=== PATIENT | male | born 1980 ===

== ENCOUNTER 2025-02-11 12:37 | Emergency (ER) | payer OTHER, SELFPAY ==
--- NOTE | 2025-02-11 12:52 | ED_ITS ---
HPI - Psych General Chief Complaint: ETOH/Substance Use Stated Complaint: Mental Health Time Seen by Provider: 02/11/25 13:22 Source: patient and family ( at bedside) Mode of arrival: ambulatory Limitations: no limitations History of Present Illness ED Provider: SUSAN Nguyen HPI Narrative: 44-year-old male accompanied by his without significant medical history presents to the ED for help with substance use. Patient states he has an extensive history of cocaine and alcohol use since his teenage years. Patient states he currently snorts and smokes approximately 5.5 grams of cocaine daily and drinks a 750ml bottle of hard liquor and 5-6 IPA beers daily. He is interested in help with these substances as he has a baby on the way and is ready to stop using. He has no physical complaints today. Denies SI, HI, AH, VH Related Data Allergies Allergy/AdvReac Type Severity Reaction Status Date / Time ibuprofen (From Motrin) Allergy Hives Verified 02/11/25 12:57 Review of Systems 2 Review of Systems: CONST: Negative for fever, body aches and chills. HENT: Negative for neck pain/stiffness, headache, congestion, sore throat, swelling. EYES: Negative for discharge/pain or vision changes. RESP: Negative for cough/hemoptysis and shortness of breath. CV: Negative chest pain, difficulty breathing, palpitations. ABD: Negative pain, nausea, vomiting. : Negative increase frequency, dysuria, blood in urine or stool. MUSC: Negative for muscle aches, edema. SKIN: Negative rash, lesions/sores. NEURO: Negative headache, dizziness, weakness. Yes all other systems are reviewed and are negative PMFSH Past Medical History Attestation statement: The following information was validated with the patient. Source: old records reviewed and nursing notes reviewed Social History Social History Alcohol intake: current Alcohol intake frequency: 0-2 drinks per day Smoked in Last 30 Days: No Use of substances other than those prescribed or required for medical reasons: Yes Advance Directives: No Advance Directives Information Provided: Yes Physical Exam 2 Vital Signs: Vital Signs: Last Vital Signs Temp 0 F L 02/11/25 17:01 Pulse 112 H 02/11/25 17:01 Resp 18 02/11/25 17:01 BP 141/106 H 02/11/25 17:01 Pulse Ox 98 02/11/25 17:01 O2 Del Method Room Air 02/11/25 17:01 BMI result Body Mass Index 32.3 GENERAL APPEARANCE: ?AxOx4, generally well-appearing, no acute distress. HEENT: ?NC, AT. MMM. EOMI, clear conjunctiva, oropharynx clear. NECK: ?Supple without lymphadenopathy.? No stiffness or restricted ROM. HEART:? tachycardic rate and regular rhythm, normal S1/S2, no m/r/g LUNGS:? CTAB, moving air well. No crackles or wheezes are heard. ABDOMEN: ?Soft, nontender, nondistended BACK: No CVAT, no obvious deformity. EXTREMITIES: ?Without cyanosis, clubbing or edema. NEUROLOGICAL: ?Grossly nonfocal. Alert and oriented, moving all 4 extremities. Observed to ambulate with normal gait. Skin: ?Warm and dry without any rash. Course Course Course Narrative: Pilar Raygoza EMBROIDERY CUTTER 02/11 1252 This is a rapid medical exam. Deferred additional HPI, ROS, PE to primary provider. 44 yo male with PMH of ADHD here with complaints of seeking detox, also palpitations used cocaine just WAITER/WAITRESS THIRD CLASS. Uses cocaine, alcohol daily. No SI/HI Ordered labs, EKG, AGUSTIN tachycardic in triage Medications Administered Discontinued Medications Generic Name Dose Route Start Last Admin Trade Name Freq PRN Reason Stop Dose Admin Naloxone HCl 8 mg 02/11/25 16:51 02/11/25 16:57 Naloxone Hcl Nasal Take Home 4 Mg [place] NOSTRILALT 02/11/25 16:52 8 mg ONCE ONE Administration Medical Decision Making Medical Decision Making MDM Narrative: 44-year-old male accompanied by his without significant medical history presents to the ED for help with substance use. Patient states he has an extensive history of cocaine and alcohol use since his teenage years. Patient states he currently snorts and smokes approximately 5.5 grams of cocaine daily and drinks a 750ml bottle of hard liquor and 5-6 IPA beers daily. He is interested in help with these substances as he has a baby on the way and is ready to stop using. He has no physical complaints today. Labs without leukocytosis, no evidence of anemia H and H stable, no electrolyte abnormality. Toxicology positive for amphetamines, cocaine. ETOH level of 56. Patient was hypertensive in the department today. He used cocaine prior to arrival. Patient reports he has hypertension but does not take medication for it as he does not believe in taking medication. Patient states he is anxious to leave and smoke a cigarette and contributes his elevated pressure to this as well. Patient had CARE team consult and is not interested in inpatient detox at this time. CARE team provided resources in the community for aid in cessation of alcohol and cocaine use. Patient and his are satisfied with the resources given to them today. No symptoms of alcohol withdrawal today. Patient feels motivated and feels well enough to go home for self care and self follow up with resources provided. I counseled patient on strict return precautions as he does not have a primary care provider to follow up with including symptoms of alcohol withdrawal, and risk of continued use of cocaine with hypertension and risk of aortic dissection. Patient sent with take home narcan. Patient and his are in agreement with the plan. Differential Diagnosis Differential Diagnoses: The differential diagnosis associated with the presentation includes Cocaine intoxication Alcohol intoxication Alcohol withdrawal encounter for resources to quit drinking alcohol Admission/Observation Consideration of admission/observation: Escalation of care including admission/observation considered Lab Data [facility] Lab Attestation statement: I reviewed the patient's lab results. 02/11/25 13:07 02/11/25 13:07 Labs: Lab Results 02/11/25 02/11/25 Range/Units 13:07 14:44 WBC 10.8 (4.8-10.8) X10*3/uL RBC 4.91 (4.60-5.80) X10*6/uL Hgb 14.7 (14.0-18.0) g/dl Hct 43.1 (42.0-52.0) % MCV 87.8 (80.0-98.0) fL MCH 29.9 (27.0-33.0) pg MCHC 34.1 (31.0-36.0) g/dl RDW 13.6 (11.0-16.0) % Plt Count 321 (160-400) X10*3/uL MPV 8.9 L (9.4-12.4) fL Immature Gran % (Auto) 0.2 (0.0-0.4) % Neut % (Auto) 55.7 (45-73) % Lymph % (Auto) 33.8 (20-40) % Hunt % (Auto) 7.4 (2-11) % Eos % (Auto) 2.3 (0-4) % Baso % (Auto) 0.6 (0-2) % Lymph # (Auto) 3.6 (1.2-4.9) X10*3/uL Hunt # (Auto) 0.8 (0.1-1.2) X10*3/uL Eos # (Auto) 0.3 (0.0-0.4) X10*3/uL Baso # (Auto) 0.1 (0.0-0.2) X10*3/uL Abs Immat Gran (auto) 0.02 (0.00-0.03) X10*3/uL Absolute Neuts (auto) 6.0 (2.0-8.3) x10*3/uL Absolute Nucleated RBC 0.000 (0.0-0.012) X10*3/uL Nucleated RBC % (auto) 0.0 (0.0-0.2) /100WBC Sodium 142 (135-145) mmol/L Potassium 4.1 (3.3-5.1) mmol/L Chloride 109 H (96-108) mmol/L Carbon Dioxide 24 (22-29) mmol/L Anion Gap 13 (12-20) BUN 11 (9-16) mg/dL Creatinine 1.12 (0.5-1.4) mg/dL Estim Creat Clear Calc 106.7 Estimated GFR > 60 Random Glucose 98 (60-115) mg/dL Calcium 9.2 (8.4-10.2) mg/dL Total Bilirubin 0.2 (0.0-1.0) mg/dL Direct Bilirubin < 0.2 (0.0-0.5) mg/dL AST 30 (5-37) U/L ALT 24 (0-40) U/L Alkaline Phosphatase 82 (39-117) U/L Total Protein 7.5 (6.5-8.0) g/dL Albumin 4.5 (3.5-5.0) g/dL Urine Opiates Screen Not Detected (Not Detect) Ur Buprenorphine Scrn Not Detected (Not Detect) ng/mL Ur Oxycodone Screen Not Detected (Not Detect) ng/mL Urine Methadone Screen Not Detected (Not Detect) ng/mL Urine Fentanyl Screen Not Detected (Not Detect) Ur Barbiturates Screen Not Detected (Not Detect) Ur Phencyclidine Scrn Not Detected (Not Detect) Ur Amphetamines Screen POSITIVE H (Not Detect) U Benzodiazepines Scrn Not Detected (Not Detect) Urine Cocaine Screen POSITIVE H (Not Detect) U Marijuana (THC) Screen Not Detected (Not Detect) Ethyl Alcohol 56 mg/dL Independent Interpretation I performed an independent interpretation of an: EKG Interpretation: I personally interpreted the EKG which reveals sinus tachycardia, no significant ST-elevation/depression, T-wave abnormality Vent. Rate : 120 BPM Atrial Rate : 120 BPM P-R Int : 152 ms QRS Dur : 82 ms QT Int : 324 ms P-R-T Axes : 62 2 25 degrees QTcB Int : 457 ms Sinus tachycardia Otherwise normal ECG No previous ECGs available Independent Historian Clinical information obtained from an independent historian. History obtained from or confirmed by: Spouse ( at bedside corroborating history) External Record Review External record reviewed: Inpatient record, Office record and Outpatient record Chronic Conditions Patient?s care impacted by: Hypertension and Other (Alcohol use disorder, cocaine use disorder) Social Determinants Patient?s care significantly limited by Social Determinants of Health including: Other Social Determinant of Health Discharge Plan Discharge Clinical Impression: Alcohol use disorder, Cocaine use disorder Patient Disposition: Home, Self-Care Instructions: Cocaine Use Disorder (ED), Alcohol Use Disorder (ED) Additional Instructions: You were evaluated in the ED today as you were seeking resources to help you with your alcohol and cocaine consumption. Your labs today were normal. Your EKG revealed an increased tachycardic heart rate, without emergent findings. You were hypertensive in the department today however this is most likely due to diagnosis of hypertension that you do not take medication for, cocaine use, and anxiety from being in the department. You had a consult with our care team today which provided you with outpatient community resources to aid in your cessation of alcohol and cocaine use. You were given Narcan take home as the cocaine in his area usually has fentanyl in it and you are at risk for opioid overdose. Your alcohol and cocaine use with hypertension that you do not take medication for puts you at extreme risk of aortic dissection, heart attack, brain aneurysm. Please follow up with a primary care doctor to manage your high blood pressure. Alcohol use disorder You were seen in the Emergency Department today for treatment of alcohol use disorder.? If you would like to cut down or stop your alcohol use please consider calling our outpatient Addiction Treatment office:? [facility] (M-F [id number]) [address] You have also been given a list of treatment providers in the area that can assist as well.? If you experience seizures, vomiting blood, black stools, falls, severe headache, chest pain, fevers, trouble breathing, hallucinations or any other concerns you need to call 911 or seek immediate care. Please stay hydrated. Please return to the emergency department if you experience chest pain, chest pain that radiates to the back, headaches, confusion, altered mental status, palpitations, nausea, vomiting, fevers over 100.4?, inpatient needs for alcohol detox, suicidal ideation, or any new/worsening/concerning symptoms Interventions: ED Discharge Assessment Last Done: 02/11/25 17:01 Discharge Date/Time: 02/11/25 17:02 Print Language: Ghanaian
[2025-02-11 12:53] VITALS: BP 182/101; PULSE 126; RESP 18; TEMP 36.7; O2SAT 98; BMI 32.3
--- NOTE | 2025-02-11 12:55 | ECG_ITS ---
Test Reason : palpitations Blood Pressure : */* mmHG Vent. Rate : 120 BPM Atrial Rate : 120 BPM P-R Int : 152 ms QRS Dur : 82 ms QT Int : 324 ms P-R-T Axes : 62 2 25 degrees QTcB Int : 457 ms Sinus tachycardia Otherwise normal ECG No previous ECGs available Referred By: Pilar Raygoza Electronically Signed By: PREMA JUAREZ MD
[2025-02-11 13:12] LABS: MANUAL DIFF FLAG NO
[2025-02-11 13:13] LABS: Hematocrit 43.1 % (42.0-52.0); Hemoglobin 14.7 g/dl (14.0-18.0); Imm Gran Abs Auto 0.02 X10*3/uL (0.00-0.03); Imm Gran Pct Auto 0.2 % (0.0-0.4); Lymphocytes Absolute Auto 3.6 X10*3/uL (1.2-4.9); Mean Corpuscular HGB Conc 34.1 g/dl (31.0-36.0); Mean Corpuscular Hemoglobin 29.9 pg (27.0-33.0); Mean Corpuscular Volume 87.8 fL (80.0-98.0); NRBC Abs Auto 0.000 X10*3/uL (0.0-0.012); NRBC Pct Auto 0.0 /100WBC (0.0-0.2); Platelet Count 321 X10*3/uL (160-400); Red Blood Count 4.91 X10*6/uL (4.60-5.80); White Blood Count 10.8 X10*3/uL (4.8-10.8)
[2025-02-11 13:34] LABS: Alanine Aminotransferase 24 U/L (0-40); Albumin Level 4.5 g/dL (3.5-5.0); Alkaline Phosphatase 82 U/L (39-117); Anion Gap 13 (12-20); Aspartate Amino Transferase 30 U/L (5-37); Blood Urea Nitrogen 11 mg/dL (9-16); Calcium 9.2 mg/dL (8.4-10.2); Carbon Dioxide 24 mmol/L (22-29); Chloride 109 mmol/L (96-108); Creatinine Clr Calc Pharmacy 106.7; Estimated Glomerular Filt Rate > 60; Potassium 4.1 mmol/L (3.3-5.1); Sodium 142 mmol/L (135-145); Total Protein 7.5 g/dL (6.5-8.0)
[2025-02-11 14:38] VITALS: BP 156/101; PULSE 109; RESP 18; O2SAT 99
--- NOTE | 2025-02-11 14:40 | PC.NURSE ---
44 M here for cocaine and alcohol detox, last use this morning. A+OX4, calm, cooperative. Pt sts denies CP or SOB. RR even and unlabored. Pt sts anxiety, adhd. Pt sts on adhd meds and abx for dog bites on bilat arms, sites look like they are healing. Pt sts last use of cocaine prior to arrival.
--- OUTSIDE RECORDS SUMMARY | 2025-02-11 15:29 | XMS_ITS | Data Portability ---
Author Organization [place] - [facility], [facility] Address [address] [place] [address] Care Team Providers Care Robotics Technician Name Role Phone CASANDRA KHAN Sales And Merchandising Representative [phone] Assessment No assessment recorded. Plan of Treatment Reminders Order Date Submit Date Provider Last Modified By Organization Details Last Modified Time Details Appointments None recorde d. Lab None recorde d. Referral None recorde d. Procedures None recorde d. Surgeries None recorde d. Imaging XR, finger( s), 2 or more view - 3v rtr small finger, infertility nurse, [phone] [email or web address] Not available 10:33:03 Medication Orders None recorde d. Patient TargetsNo targets recorded. Patient Instructions Encounter Date Encounter Id Patient Instructions Last Modified By Organization Details Last Modified Time 09/02/2023 [id number] application of splint, finger* - rt small finger aluminum foam splint dorsal to cover dip in neutral [email or web address] Not available 09/02/2023 10:51:10 Reason for Referral None Reported. Results Created Date Observation Date Name Description Value Unit Range Abnormal Flag Note LastModifiedBy Organization Detail LastModifiedTime 12/19/19 24 08/09/2021 imagi ng/di agnos tic resul t No observ ation record ed. [email or web address] Not Available 11/21 08:23:38 Result Notes None recorded. Medical Equipment None Reported. Allergies Allergen ID Allergen Name Allergen Category Reaction Reaction Severity Criticality Documentation Date Start Date Code Code System Note Provider Name and Address Organization Details Recorded Time 55624 ibuprofen medicatio n Not available Not available Not available 06/23/20232021 5640 RxNorm Not Available [facility] 12:19:36 Medications Name Sig Start Date Stop Date Status Note LastModified by Organization Details LastModified Time nicotine 14 mg/24 hr daily transdermal patch APPLY 1 PATCH TOPICALLY DAILY FOR 14 DAYS FOLLOWING COMPLETIO N OF STEP 1 active Not Available Not Available No t Available clindamycin HCl 300 mg capsule TAKE 1 CAPSULE BY MOUTH 3 TIMES A DAY FOR 7 DAYS active Not Available Not Available No t Available dextroamphe tamine-amph etamine 10 mg tablet TAKE 1 TABLET BY MOUTH TWICE A DAY FOR 30 DAYS active Not Available Not Available No t Available dextroamphe tamine-amph etamine 20 mg tablet TAKE 1 TABLET BY MOUTH 2 TIMES A DAY,INSTR :PT DUE 08-02-23 active Not Available Not Available No t Available nicotine 21 mg/24 hr daily transdermal patch APPLY TOPICALLY EVERY DAY FOR 6 WEEKS active Not Available Not Available No t Available nicotine 7 mg/[address] patch [address] 1 PATCH TOPICALLY DAILY,X14 DAYS,FOLL OWING COMPLETIO N OF STEP 2 active Not Available Not Available No t Available rosuvastati n 5 mg tablet TAKE 1 TABLET BY MOUTH EVERY DAY active Not Available Not Available No t Available oxycodone HCl-oxycodo ne-ASA take 1 every 4 - 6 hours as needed for pain.DO NOT DRIVE WHILE TAKING THIS MEDICATIO N 01/18 completed Statu s: 'Disc ontin ued'; Not Available Not Available Not Available Vitals Date Recorded Body height Body mass index (BMI) Body weight Provider Name and Address Organization Details Last Updated DateTime 09/02/2023 180.34 cm 32.1 kg/m2 847682.25 g ELGIN AWAN [place] - [facility] 09/02/2023 09:38:57 Social History None recorded. Functional Status None recorded. Mental Status None recorded. Family History Nothing Reported. Medical History No medical history recorded. Past Encounters Encounter ID Performer Location Encounter Start Date Encounter Closed Date Diagnosis/Indication Diagnosis SNOMED-CT Code Diagnosis ICD10 Code Diagnosis IMO Codes Diagnosis Note [id number] MD Yong Carr[place] [address] [place] [address] 09/02/2023 09:00:35 09/12/2023 10:33:03 Pain in finger of right hand 8170344251 47813 M79.644 Mallet fin allyson of right hand [id number] 49608 M20.011 Health Concerns Section Related Observation LastModified by Organization Detai ls LastModified Time None Recorded Concern Status LastModified by Organization Details LastModified Time None Recorded Advance Directives Directive None Recorded Payers Insurance Date Sequence Insurance Name Policy Number Policy Palencia Covered Member ID Palencia Member ID Guarantor Name 09/01/2023 [facility] Brody Santiago Notes Date Note Type Note Provider Name and Address Organization Details Recorded Time 09/02/2023 text/html ROS as noted in the HPI Diagnosis: 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 He was cleaning out a freezer work when a 16 pound turkey fell striking the tip of his right small finger. He noted the immediate onset of pain and swelling. He has been unable to fully straighten the digit since that time. He has subsequently been placed in a splint maintaining the distal joint of his right small finger in extension.Past family, medical, social history and review of systems has been reviewed, updated and signed by me and is located in the patient s chart.Examination: Healthy appearing patient in no apparent distress. Alert and oriented. Well fitting splint right small finger which maintains his DIP joint extension but is blocking his PIP joint from full flexion. Provocative testing of the remaining digital joints reveals no instability. No atrophy either upper extremity. Brisk cap refill of digits.X-rays ordered, obtained, and reviewed today at [facility] and lateral/oblique right small finger reveal no evidence of fracture or dislocation.Plan: I described to the patient the nature of mallet injuries and his treatment options. I provided him with a new splints maintaining his DIP joint extension with his PIP free. I have encouraged him to work aggressively on mobilizing his PIP joint. He will follow up 8 weeks from his initial splinting today. We will remove the splint and evaluate him clinically at that time. No no x-rays should be necessary. Larry Laws MD [address] [place], [place] [address] [address], [place], [address], [facility] - [facility] 09/02/2023 12:20:36
--- OUTSIDE RECORDS SUMMARY | 2025-02-11 15:29 | XMS_ITS | Clinical Summary ---
Author Organization [facility] Address [address] [place] [address] Care Team Providers Care Packaging Design Engineer Name Role Phone Pcp, No Primary Care Provider Unavailabl e Encounters Date Type Department Care Team Description 12/03/2024 6:50 PM EDT Office Visit [facility] [address] [place] [address] Wally Couch MD Dow, Emily Christina, APRN Testicular abnormality (Primary Dx); Acute epididymitis; Need for prophylactic antibiotic 12/03/2024 Travel from Last 3 Months Social History Tobacco Use Types Packs/Day Years Used Date Smoking Tobacco: Never Assessed Sex and Gender Information Value Date Recorded Sex Assigned at Not on file Legal Sex Male 5:05 PM EDT Gender Identity Not on file Sexual Orientation Not on file Last Filed Vital Signs Vital Sign Reading Time Taken Comments Blood Pressure 129/69 12/03/2024 7:13 PM EDT Pulse 113 12/03/2024 7:13 PM EDT Temperature 36.9 C (98.5 F) 12/03/2024 7:13 PM EDT Respiratory Rate - - Oxygen Saturation 97% 12/03/2024 7:13 PM EDT Inhaled Oxygen Concentration - - Weight 105 kg (232 lb) 12/03/2024 7:13 PM EDT Height 181.6 cm (5' 11.5 ) 12/03/2024 7:13 PM ED T Body Mass Index 31.91 12/03/2024 7:13 PM EDT Plan of Treatment Health Maintenance Due Date Last Done Comments Hepatitis C Virus Screening 1982 HIV Screening 1995 DTaP/Tdap/Td Vaccines (1 - Tdap) 2001 Hepatitis B Vaccines (1 of 3 - 19+ 3-dose series) 2001 Influenza Vaccine 11/19/2024 COVID-19 Vaccine (2023-2 5 season) 2024 HPV Vaccines (No Doses Required) Completed Pneumococcal Vaccine: Pediat nicky (0-5 Years) and At-Risk Patients (6 to 49 Years) Aged Out No longer eligible b ased on patient's age to complete this topic Procedures Procedure Name Priority Date/Time Associated Diagnosis Comments GC/CHLAMYDIA, RNA TMA Routine 12/04/2024 2:30 PM EDT from Last 3 Months Results * GC/Chlamydia, RNA TMA (12/04/2024 2:30 PM EDT) Chlamydia Trachomatis RNA, TMA NOT DETECTED NOT DETECTED [facility] Neisseria Gonorrhoeae RNA, TMA NOT DETECTED NOT DETECTED [facility] Chlamydia Trachomatis RNA, TMA Comment [facility] Comment: The analytical performance characteristics of this assay, when used to test SurePath(TM) specimens have been determined by [employer]. The modifications have not been cleared or approved by the FDA. This assay has been validated pursuant to the CLIA regulations and is used for clinical purposes. For additional information, please refer to https://education.[employer].InnaVirVax/faq/DJC175 (This link is being provided for information/ educational purposes only.) 12/04/2024 2:30 PM EDT 12/04/2024 11:29 PM EDT us Jessenia Kulkarni APRN LAB AMB MICRO ORDERABLE S Final Result [facility] [address] [place] [phone] from Last 3 Months Care Teams Packaging Design Engineer Relationship Specialty Start Date End Date Pcp, No PCP - General General Medicine 12/03/24
--- OUTSIDE RECORDS SUMMARY | 2025-02-11 15:30 | XMS_ITS | Clinical Summary ---
Author Organization [facility] Address [address] [place] [address] [place] [id number] Phone Care Team Providers Care Industrial Security Analyst Name Role Phone Unavailable Primary Care Provider Unavailabl e Allergies Active Allergy Reactions Criticality Noted Date Comments Ibuprofen Hives 11/29/2015 Medications traMADoL (ULTRAM) 50 mg tablet 08/22/2020 Active amoxicillin (AMOXIL) 875 MG tablet 08/22/2020 Active Active Problems Problem Noted Date Diagnosed Date Varicocele 07/12/2020 Overview (07/12/2020): left Pain in both wrists 07/12/2020 Assessment & Plan (07/12/2020 2:28 PM EDT): Referral to Dr. Herbert ; he has a left wrist ganglion - reviewed these can be aspirated with ~50% chance of recurrence FHx: colon cancer 07/12/2020 Assessment & Plan (07/12/2020 2:26 PM EDT): High grade polyps in 3 first degree relatives, states family was advised to start screening at age 36; referral to [facility] is made. BMI 40.0-44.9, adult 07/12/2020 Assessment & Plan (07/12/2020 2:26 PM EDT): Focus on gradual dietary change and regular exercise. Tobacco use 07/12/2020 Assessment & Plan (07/12/2020 2:27 PM EDT): 13 pack year history, 1/2 ppd ; sent in [facility] and reviewed use; referral to smoking cessation group made Immunizations Immunization Administration Dates Next Due PPD Test 07/18/2017 Tdap 07/12/2020 Family History Medical History Relation Comments Colon polyps Father Colon cancer Paternal Uncle Colon polyps Sister Relation Status Comments Father Paternal Uncle Sister Social History Tobacco Use Types Packs/Day Years Used Date Smoking Tobacco: Every Day Cigarettes 0.5 15 Smokeless Tobacco: Former Alcohol Use Standard Drinks/Week Comments Yes 0 (1 standard drink = 0.6 oz pur e alcohol) 2-3 days a week, 3 drinks Child or Family Care Answer Date Record ed Do you have problems with on e of the following making it difficult for you to work, study, or receive health care? No 07/12/2020 Education Answer Date Recorded Are you interested in more education? Not on aristides e 08/16/2022 Are you concerned about learning? Not on file 08/16/2022 No 08/16/2022 No 08/16/2022 Food Answer Date Recorded Within the past 6 months we worried whether our food would run out before we got money to buy more. Never True 07/12/2020 Within the past 6 months the food we bought just didn't last and we didn't have enough money to get more. Never True Paying for Meds Answer Date Recorded Do you have trouble paying for medicines? No 07/12/2020 Paying Utility Bills Answer Date Record ed Do you have trouble paying your heating or elect ricity bill? No 07/12/2020 Transportation Answer Date Recorded Has the lack of transportati on kept you from medical appointments or from getting medications? No 07/12/2020 Digital Access Answer Date Recorded No 09/13/2022 No 09/13/2022 No 09/13/2022 Reliable internet access at home? Not on file 09/13/2022 Device with a working camera? Not on file Sex and Gender Information Value Date Recorded Sex Assigned at Not on file Legal Sex Male 9:19 PM EDT Gender Identity Not on file Sexual Orientation Not on file Last Filed Vital Signs Vital Sign Reading Time Taken Comments Blood Pressure 138/82 07/12/2020 1:29 PM EDT Pulse 95 07/12/2020 1:29 PM EDT Temperature 36.7 C (98.1 F) 07/12/2020 1:29 PM EDT Respiratory Rate - - Oxygen Saturation 97% 07/12/2020 1:29 PM EDT Inhaled Oxygen Concentration - - Weight 113.8 kg (250 lb 12.8 oz) 07/12/2020 1:29 PM EDT Height 167.6 cm (5' 6 ) 07/12/2020 1:29 PM EDT Body Mass Index 40.48 07/12/2020 1:29 PM EDT Plan of Treatment Health Maintenance Due Date Last Done Comments SMOKING Hx and SMOKELESS TOBACCO SCREENING 1995 PNEUMOCOCCAL VACCINES (0-49 years) (1 of 2 - PCV) 2001 DEPRESSION SCREENING 07/12/2021 07/12/2020 INFLUENZA VACCINE (#1) 2024 COVID-19 VACCINE (3 - 2024-2 6 season) 2024 01/18/2021, 12/28/2020 LIPID PANEL 07/24/2025 07/24/2020 Adult Td,Tdap Booster 07/12/2030 07/12/2020 HEPATITIS C SCREENING Completed 07/24/2020 HIV ONE-TIME SCREENING (18-6 5 YEARS) Completed 07/24/2020 HEPATITIS A VACCINES Aged Out No long er eligible based on patient's age to complete this topic HIB VACCINES Aged Out No longer eligi ble based on patient's age to complete this topic MENINGOCOCCAL VACCINES (ACWY) Aged Out No longer eligible based on patient's age to complete this topic MENINGOCOCCAL VACCINES (B) Aged Out N o longer eligible based on patient's age to complete this topic Medical Devices Not on file Procedures Procedure Name Priority Date/Time Associated Diagnosis Comments LIPID PANEL Routine 07/24/2020 9:38 AM EDT Screening, lipid HEPATITIS C ANTIBODY, QUALITATIVE Routine 07/24/2020 9:38 AM EDT Encounter for hepatitis C screening test for low risk patient from Last 3 Months or Most Recently Relevant to Health Maintenance Results * Hepatitis C antibody, qualitative (07/24/2020 9:38 AM EDT) HCV NON-REACTIV E NON-REACTI VE [facility] Blood 07/24/2020 9:38 AM EDT 07/24/2020 9:47 AM EDT us [facility] LAB BLOOD ORDERABLES Final Re sult Performing Organization Address [facility]/ZIP Co de Phone Number [address] [phone] * (ABNORMAL) Lipid panel (07/24/2020 9:38 AM EDT) HDL 58 mg/dL [facility] Comment: Interpretation <40 mg/dL: Low HDL cholesterol (major risk factor for CHD) Greater than or equal to 60 mg/dL: High HDL cholesterol ( negative risk factor for CHD) HDL - cholesterol is affected by a number of factors, e.g. smoking, excerise, hormones, sex and age. CHOLESTEROL 264(H) 0 - 240 mg/dL [facility] TRIGLYCERIDES 107 30 - 160 mg/dL [facility] LDL 185(H) 50 - 129 mg/dL [facility] Comment: LDL levels in terms of risk for coronary heart disease: <100 mg/dL: Optimal 100-129 mg/dL: Near or above optimal 130-159 mg/dL: Borderline high 160-189 mg/dL: High >190 mg/dL: Very High CARDIAC RISK RATIO 4.6 3.4 - 5.0 C [facility] Blood 07/24/2020 9:38 AM EDT 07/24/2020 9:47 AM EDT us [facility] LAB BLOOD ORDERABLES Final Re sult Performing Organization Address [facility]/ZIP Co de Phone Number [address] [phone] from Last 3 Months or Most Recently Relevant to Health Maintenance [place] [address] BLUE CROSS OUT OF STATE PPO BLUE CROSS OUT OF STATE PPO BLUE CROSS OUT OF STATE PPO BLUE CROSS OUT OF STATE PPO BLUE CROSS OUT OF STATE PPO BLUE CROSS OUT OF STATE PPO BLUE CROSS OUT OF STATE PPO BLUE CROSS OUT OF STATE PPO BLUE CROSS OUT OF STATE PPO Additional Source Comments The information contained in this document represents components of the legal health record. It is not the complete legal health record.[facility]
--- OUTSIDE RECORDS SUMMARY | 2025-02-11 15:30 | XMS_ITS | Clinical Summary ---
Author Organization [facility] Address [address] [place] [address] Care Team Providers Care Suppression Crew Leader Name Role Phone Prema Mireles PA-C Primary Care Provider [phone] Source Comments PLEASE NOTE, if this patient is a minor, it may be UNLAWFUL to discuss sensitive information that is contained in these records (such as FAMILY PLANNING, MENTAL HEALTH or SUBSTANCE ABUSE) with the minor patient's parent or other person without the patient's specific authorization.[facility] Allergies Active Allergy Reactions Criticality Noted Date Comments Ibuprofen Hives 11/29/2015 Medications varenicline (CHANTIX STARTING MONTH OTILIO) 0.5 mg (11)- 1 mg (42) tabletIndication s:Smoking addiction Take one 0.5mg tab once daily for first 3 days, then 0.5mg tab twice daily for 4 days, then 1mg tab twice daily. 1 Packet 0 11/29/2015 Active Active Problems Problem Noted Date Diagnosed Date Obesity (BMI 30.0-34.9) 11/29/2015 Varicocele Overview (11/29/2015): left Immunizations Immunization Administration Dates Next Due PPD 07/18/2017 Family History Medical History Relation Name Comments Kidney disease Sister stones Relation Name Status Comments Sister Social History Tobacco Use Types Packs/Day Years Used Date Smoking Tobacco: Every Day Cigarettes Alcohol Use Standard Drinks/Week Comments Yes 14 (1 standard drink = 0.6 oz pu re alcohol) Social Connections Answer Date Recorded Connectedness 0 01/08/2024 Financial Resource Strain Answer Date R ecorded Financial Resource Strain 0 2018 Stress Answer Date Recorded Stress 0 12/07/2018 Physical Activity Answer Date Recorded Physical Activity 0 12/07/2018 Food Insecurity Answer Date Recorded Food 0 01/15/2024 Transportation Needs Answer Date Record ed Transportation 0 12/07/2018 Housing Stability Answer Date Recorded Housing 0 12/07/2018 Safety and Environment Answer Date Jerald rded Safety 0 12/07/2018 Utilities Answer Date Recorded Utilities 0 12/07/2018 Employment Answer Date Recorded Stress 0 01/08/2024 Sex and Gender Information Value Date Recorded Sex Assigned at Male 07/18/2017 12:57 PM PDT Legal Sex Male 12:42 PM PDT Gender Identity Male 07/18/2017 12:57 PM PDT Sexual Orientation Straight 07/18/2017 12 :57 PM PDT Occupation Industry Job Start Date Job End Date Cook Not on file Not on file Not on file Last Filed Vital Signs Vital Sign Reading Time Taken Comments Blood Pressure 124/82 11/29/2015 10:07 AM EDT Pulse 78 11/29/2015 10:07 AM EDT Temperature 36.9 C (98.4 F) 11/29/2015 10:07 AM EDT Respiratory Rate 15 11/29/2015 10:07 AM EDT Oxygen Saturation - - Inhaled Oxygen Concentration - - Weight 100.8 kg (222 lb 3 oz) 11/29/2015 10:07 A M EDT Height 175 cm (5' 8.9 ) 11/29/2015 10:07 AM EDT Body Mass Index 32.91 11/29/2015 10:07 AM EDT Plan of Treatment Not on file Insurance [facility] Care Teams Suppression Crew Leader Relationship Specialty Start Date End Date Prema Mireles PA-C [address] [place] [address] PCP - General 03/11/18
--- OUTSIDE RECORDS SUMMARY | 2025-02-11 15:30 | XMS_ITS | Clinical Summary ---
Author Organization [facility] Address [address] [place] [address] Phone Care Team Providers Care Manager Pest Name Role Phone Rosa Murphy NP Primary Care Provider [phone] Allergies Active Allergy Reactions Criticality Noted Date Comments Ibuprofen Hives 11/29/2015 Medications amoxicillin-cla vulanate (AUGMENTIN) 875-125 mg per tablet Take 1 tablet by mouth 2 (two) times a day for 7 days. 14 tablet 02/02/2025 02/10/20 25 acetaminophen (TYLENOL) 325 mg tablet Take 2 tablets (650 mg total) by mouth every 6 (six) hours if needed for mild pain for up to 5 days. 40 each 02/02/2025 02/08/20 25 Encounters Date Type Department Care Team Description 02/02/2025 12:01 AM EDT - 02/02/2025 3:[address] [facility] Emergency [address] [place] [address] Sg Tobar MD Animal bite (Primary Dx); Rabies vaccine administered Discharge Disposition: Home or Self Care from Last 3 Months Immunizations Immunization Administration Dates Next Due Human Rabies, Chicken Fibrob last Cell Culture, (Rabavert) 02/02/2025 Tdap Tetanus diptheria acell ular pertussis (Boostrix; Adacel) 7yo and older 02/02/2025 Social History Tobacco Use Types Packs/Day Years Used Date Smoking Tobacco: Never Smokeless Tobacco: Never Tobacco Cessation:Counseling Given: Not Answered Sex and Gender Information Value Date Recorded Sex Assigned at Not on file Legal Sex Male 3:20 AM EST Gender Identity Not on file Sexual Orientation Not on file Obstetrics History Last Filed Vital Signs Vital Sign Reading Time Taken Comments Blood Pressure 130/108 02/01/2025 11:09 PM EDT Pulse 102 02/01/2025 11:09 PM EDT Temperature - - Respiratory Rate 20 02/01/2025 11:09 PM EDT Oxygen Saturation 100% 02/01/2025 11:09 PM EDT Inhaled Oxygen Concentration - - Weight 106 kg (233 lb 12.8 oz) 02/02/2025 12:09 AM EDT Height 181.6 cm (5' 11.5 ) 02/01/2025 11:09 PM E DT Body Mass Index 32.15 02/01/2025 11:09 PM EDT Plan of Treatment Health Maintenance Due Date Last Done Comments Hepatitis B Vaccines (1 of 3 - 19+ 3-dose series) 2001 HPV Vaccines (1 - 3-dose SCD M series) 2009 HIV Screening 03/24/2022 Social Influencers of Health Screening 03/24/2022 Depression Screening 04/21/2024 COVID-19 Vaccine (3 - 2024-2 6 season) 2024 01/18/2021, 12/28/2020 Influenza Vaccine (#1) 2024 Cholesterol Screening (Lipid Panel) 07/24/2025 07/24/2020 DTaP,Tdap,and Td Vaccines (3 - Td or Tdap) 02/02/2035 02/02/2025, 07/12/2020 RSV Immunization Adult Patients (1 - 1-dose 75+ series) 2057 Hepatitis C Screening Completed 07/24/2020 HIB Vaccines Aged Out No longer eligi ble based on patient's age to complete this topic Hepatitis A Vaccines Aged Out No long er eligible based on patient's age to complete this topic IPV Vaccines Aged Out No longer eligi ble based on patient's age to complete this topic MMR Vaccines Aged Out No longer eligi ble based on patient's age to complete this topic Meningococcal ACWY Vaccine Aged Out N o longer eligible based on patient's age to complete this topic Meningococcal B Vaccine Aged Out No l onger eligible based on patient's age to complete this topic Pneumococcal Vaccine: Pediatrics (0 to 5 Years) and At-Risk Patients (6 to 49 Years) Aged Out No longer eligible b ased on patient's age to complete this topic RSV Immunization Patients Under 20 months Aged Out No longer eligible b ased on patient's age to complete this topic Varicella Vaccines Aged Out No longer eligible based on patient's age to complete this topic Procedures Procedure Name Priority Date/Time Associated Diagnosis Comments XR FOREARM BILAT STAT 02/02/2025 1:47 AM EDT from Last 3 Months Results * XR Forearm bilat (02/02/2025 1:47 AM EDT) Anatomical Region Laterality Modality Upper Extremities, Elbow Bilateral Radiogr aphic Imaging 02/02/2025 9:07 AM EDT Impressions 02/02/2025 9:08 AM EDT Impression: 1. Subcutaneous air locules consistent with dog bite. 2. No fracture or retained opaque foreign body identified. Telerad ROBERTA ([id number]) -------- FINAL REPORT -------- Dictated By: Cindy Mak Dictated Date: 02/02/2025 09:07 ET Assigned Physician: Cindy Mak Reviewed and Electronically Signed By: Cindy Mak Signed Date: 02/02/2025 09:08 ET Workstation ID: [id number] Transcribed By: Self Edit Transcribed Date: 02/02/2025 09:07 ET Narrative 02/02/2025 9:08 AM EDT History: Dog bite to right forearm. Findings: AP and lateral views of the right forearm. Multiple small air locules are seen within the subcutaneous soft tissues of the distal half of the forearm, in keeping with the clinical history. No retained opaque foreign body is seen. The osseous structures are intact and the articular spaces are well-maintained. Procedure Note Cindy Mak MD - 02/02/2025 History: Dog bite to right forearm. Findings: AP and lateral views of the right forearm. Multiple small air locules areseen within the subcutaneous soft tissues of the distal half of theforearm, in keeping with the clinical history. No retained opaque foreignbody is seen. The osseous structures are intact and the articular spaces arewell-maintained. IMPRESSION: Impression: 1. Subcutaneous air locules consistent with dog bite. 2. No fracture or retained opaque foreign body identified. Telerad ROBERTA ([id number]) -------- FINAL REPORT -------- Dictated By: Cindy Mak Dictated Date: 02/02/2025 09:07 ET Assigned Physician: Cindy Mak Reviewed and Electronically Signed By: Cindy Mak Signed Date: 02/02/2025 09:08 ET Workstation ID: [id number] Transcribed By: Self Edit Transcribed Date: 02/02/2025 09:07 ET us Sg Julito Tobar MD IMG XR PROCEDURES Final Re sult from Last 3 Months Insurance MEDICAID - [place] Care Teams Manager Pest Relationship Specialty Start Date End Date Rosa Murphy NP [address] [place] [phone] PCP - General Nurse Practitioner 02/02/25
[2025-02-11 15:35] LABS: Cannabinoid Screen Urine Not Detected (Not Detect)
[2025-02-11 16:41] VITALS: BP 141/106; PULSE 112; RESP 18; O2SAT 98
[2025-02-11] MEDS: Naloxone HCl Nasal TAKE HOME 4 MG SPRAY 8 MG NOSTRILALT (16:57)
--- NOTE | 2025-02-11 16:57 | PC.NURSE ---
naloxone take home kit dispensed
[2025-02-11 17:01] VITALS: BP 141/106; PULSE 112; RESP 18; TEMP -17.7; TEMP 0; O2SAT 98
== END 2025-02-11 17:02 | disposition home or self-care (01) ==
PROVIDERS: Nurse Practitioner Family; Emergency Provider Emergency Medicine; PCP Nurse Practitioner Adult Health
DX: F10.90 Alcohol use, unspecified, uncomplicated (principal); R00.0 Tachycardia, unspecified; Y90.2 Blood alcohol level of 40-59 mg/100 ml; F14.90 Cocaine use, unspecified, uncomplicated; R00.2 Palpitations; Z51.81 Encounter for therapeutic drug level monitoring; Z79.899 Other long term (current) drug therapy
CPT/HCPCS: 36415; 80048; 80076; 80307; 85025; 93005; 99284; S9485

== ENCOUNTER → 2025-02-11 12:55 | Outpatient (BNV) | payer SELFPAY | PROVIDERS: Emergency Provider Emergency Medicine; PCP Nurse Practitioner Adult Health; Visit Provider Internal Medicine Cardiovascular Disease | DX: R00.0 Tachycardia, unspecified (principal) | CPT/HCPCS: 93010 ==